=== PATIENT | female | born 1990 | race Caucasian/White ===

== ENCOUNTER 2021-12-13 08:56 | Outpatient (CLI) | payer OTHER, SELFPAY ==
[2021-12-13 15:34] LABS: Cholesterol* 177 mg/dL (90-199)
[2021-12-13 15:35] LABS: Glucose* 91 mg/dL (60-115); HDL Cholesterol* 50 mg/dL (>=50); LDL Cholesterol Calculated 108 mg/dL (<100); Triglycerides* 96 mg/dL (40-149)
== END 2021-12-13 08:57 | disposition home or self-care (01) ==
PROVIDERS: Visit Provider Physician Assistant
DX: Z01.419 Encounter for gynecological examination (general) (routine) without abnormal findings (principal); Z13.6 Encounter for screening for cardiovascular disorders; Z13.1 Encounter for screening for diabetes mellitus
CPT/HCPCS: 80061; 82947

== ENCOUNTER 2021-12-26 20:01 | Emergency (ER) | payer OTHER, SELFPAY ==
[2021-12-26 20:09] VITALS: BP 113/79; PULSE 119; RESP 18; TEMP 36.7; O2SAT 99; BMI 25.0
[2021-12-26 21:00] VITALS: BP 97/64; PULSE 98; RESP 16; O2SAT 96
--- NOTE | 2021-12-26 21:15 | ED_ITS ---
HPI - Chest Pain General Chief Complaint: Chest Pain Stated Complaint: Post Vaccine Chest Pain Time Seen by Provider: 12/26/21 20:09 History of Present Illness HPI narrative: 31-year-old woman accompanied here with her with complaint of evening episodes of sternal chest pain. She felt her heart beating really hard for about a minute and then it would stop; repeated maybe dozen times. Has never had this before. She is normally quite active. Actually just ran the [employer]. Regularly running or doing palatine other than this past week. Does not have any particular pain or exercise intolerance with these workouts. Has not had any fever. But has been clammy and achy with a headache on the heels of COVID booster which she received yesterday. This was not an atypical reaction for her. Heart rate was elevated with prior booster as well. Is not short of breath. No pleuritic pain. No history of dyspepsia. No unusual leg pain. Notes her sister had some rhythm issue but otherwise no family history of cardiovascular problems. Just noting a chest pain thought she should be checked out to be safe. Pain free now. By the time I am seeing Ms. Kenny, there is an EKG that has a lot of baseline irritability and some wandering normal sinus rate of 96. I do not see ischemic changes. I requested for repeat EKG and this shows less baseline irritability rate of 95 normal sinus also without ischemic changes. a little early transition Related Data Home Medications Medication Instructions Recorded Confirmed No Known Home Medications 12/26/21 12/26/21 Allergies Allergy/AdvReac Type Severity Reaction Status Date / Time ethinyl estradiol Allergy Severe swelling, Verified 12/13/21 08:38 hives nickel Allergy Severe swelling, Verified 12/13/21 08:38 hives Apples Allergy Severe throat Uncoded 12/13/21 08:38 swelling Cat hair extract Allergy Severe throat Uncoded 12/13/21 08:38 swelling Horse Allergy Allergy Severe throat Uncoded 12/13/21 08:38 swelling seasonal Allergy Mild congestion, Uncoded 12/13/21 08:38 runny nose Review of Systems Status of ROS Reports: 10 or more systems reviewed and unremarkable except as noted in History and below [facility] Medical History (Updated 12/26/21 @ 21:48 by Dustin Ambrosio MD) Asthma Depression Surgical History (Updated 12/13/21 @ 08:51 by Ana Cruz PA-C) No history of previous surgery Family History (Updated 12/13/21 @ 13:02 by Ana Cruz PA-C) Family/Other Liver cancer Social History (Updated 12/13/21 @ 13:03 by Ana Cruz PA-C) 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 Nonsmoker. Occasional alcohol use. No drug use. No concerns with safety or abuse. Smoking Status: Never smoker How often do you have a drink containing alcohol: monthly or less AUDIT-C Alcohol total score: 1 Non-prescribed substance use: denies use Little interest or pleasure in doing things: not at all Feeling down, depressed, or hopeless: not at all Exam Narrative Exam Narrative: Very pleasant. Calm. Breathing easily. Skin is little clammy most noticeable on her back. Face is a little flushed. S clera little injected. Lungs are clear with equal expansion excursion. Breath sounds throughout. Moving all extremities without difficulty. Well perfused peripherally. No edema apparent. Cardiovascular with elevated rate in a regular rhythm. No murmur rub or gallop identified. Const Vital Signs, click to edit/add: Vital Signs - 24 hr 12/26/21 20:09 12/26/21 21:00 Temperature 98.0 F Pulse Rate [Right Pulse Oximeter] 119 H 98 Respiratory Rate 18 16 Blood Pressure [Right Upper Arm] 113/79 97/64 Pulse Oximetry 99 96 Oxygen Delivery Method Room Air Documenting provider has reviewed patient's vital signs: yes Course Vital Signs Vital signs: Initial Vital Signs Temperature 98.0 F 12/26/21 20:09 Temperature Source Temporal Artery Scan 12/26/21 20:09 Pulse Rate 119 H 12/26/21 20:09 Respiratory Rate 18 12/26/21 20:09 Blood Pressure 113/79 12/26/21 20:09 Blood Pressure Mean 90 12/26/21 20:09 Blood Pressure Position Sitting 12/26/21 20:09 Pulse Oximetry 99 12/26/21 20:09 Oxygen Delivery Method 12/26/21 20:09 Vital Signs Temperature 98.0 F 12/26/21 20:09 Pulse Rate 119 H 12/26/21 20:09 Respiratory Rate 18 12/26/21 20:09 Blood Pressure 113/79 12/26/21 20:09 Pulse Oximetry 99 12/26/21 20:09 Oxygen Delivery Method 12/26/21 20:09 Temperature 98.0 F 12/26/21 20:09 Pulse Rate 98 12/26/21 21:00 Respiratory Rate 16 12/26/21 21:00 Blood Pressure 97/64 12/26/21 21:00 Pulse Oximetry 96 12/26/21 21:00 Oxygen Delivery Method 12/26/21 20:09 MDM - Chest Pain MDM Narrative Medical decision making narrative: Given the transient nature of this discomfort, her historical exercise tolerance, compounding factors of elevated heart rate/tachycardia I think due to COVID booster, no pleuritic nature to this discomfort, I think this is less likely to be pulmonary embolus and even less so ischemic cardiac event. Too early for pulmonary embolus or pericarditis/myositis from vaccine, and again no persistent symptoms. Other than elevated rate, EKGs were already done and unremarkable upon my review. I propose a period of cardiac monitoring in the emergency department looking for some potential tachyarrhythmia. Monitoring is done. Overall stable, good vitals, no recurrence of chest discomfort. Heart rate has decreased into the 80s. I did discuss doing lab work for more reassurance for example D-dimer or troponin but I think this is actually quite low yield here. I think safe to depart the ER. Discharge Plan Discharge Clinical Impression: Heart palpitations, Chest pain Patient Disposition: Home w/ Parent or Adult Condition: Stable Additional Instructions: Focus on hydration. Ibuprofen or acetaminophen --consider taking some when you get home. Depending on how much energy you have, I think you can return to usual level activity. Return for persistent recurrence of this chest discomfort/hard beats, particularly if associated with shortness of breath, persistent lightheadedness, pain when you breathe. Prescriptions: No Action No Known Home Medications Follow Up/Referrals: Provider,Not a Local [Primary Care Provider] - Stand Alone Forms: [employer] Info Instructions
== END 2021-12-26 21:57 | disposition home or self-care (01) ==
PROVIDERS: Emergency Provider Family Medicine
DX: R00.2 Palpitations (principal); R07.89 Other chest pain
CPT/HCPCS: 93005; 99283

== ENCOUNTER 2022-03-01 13:56 | Outpatient (CLI) | payer OTHER, SELFPAY ==
--- NOTE | 2022-03-01 14:00 | CRLHL7_ITS ---
For Patients: As a result of the Cures Act, medical imaging exams and procedure reports are released immediately into your electronic medical record. You may view this report before your referring provider. If you have questions, please contact your health care provider. INDICATION: First trimester scan, establish dates. COMPARISON: None. TECHNIQUE: Real-time chavez-scale imaging of the pelvis was performed. FINDINGS: Sonographic imaging demonstrates a single living intrauterine gestation. The embryo demonstrates a regular cardiac rate measuring 171 beats per minute. The embryo`s crown-rump length measurement of 2.1 cm corresponds to a gestational age of 8 weeks 5 days with a sonographic due date of 10/06/2022. There is a normal-appearing yolk sac. There are no gross abnormalities noted within the embryo at this early state of development. The gestational sac has a normal appearance. There is a small 5 x 4 x 9 millimeter inferior perigestational hemorrhage. Small amount of fluid is present within the adjacent cervical endometrium. The amount of fluid within the sac appears appropriate for gestational age. The cervix is closed. The myometrium appears normal. The ovaries are of normal size. Corpus luteal cyst right ovary. There are no suspicious fluid collections noted in the cul-de-sac. IMPRESSION: Single living intrauterine with sonographic gestational age 8 weeks 5 days and sonographic due date 10/06/2022. Small inferior subchorionic hemorrhage with adjacent mild endocervical fluid. Dictated by Dustin Romeo MD @ 03/01/2022 3:02:00 PM (Electronically Signed)
== END 2022-03-01 13:57 | disposition home or self-care (01) ==
LOC: US 13:57
PROVIDERS: Visit Provider Physician Assistant
DX: Z34.91 Encounter for supervision of normal pregnancy, unspecified, first trimester (principal); Z3A.08 8 weeks gestation of pregnancy
CPT/HCPCS: 76817; 86592; 86703; 86762; 86787; 86803; 86850; 86900; 86901; 87086; 87340; 87491; 87591

== ENCOUNTER 2022-05-13 09:50 | Outpatient (CLI) | payer OTHER, SELFPAY | END 2022-05-13 09:51 | disposition home or self-care (01) | LOC: NFLDREF 05-14 10:27 | PROVIDERS: PCP Physician Assistant; Referring Provider Physician Assistant; Visit Provider Obstetrics & Gynecology | DX: N39.0 Urinary tract infection, site not specified (principal) | CPT/HCPCS: 87086 ==

== ENCOUNTER 2022-05-22 14:02 | Outpatient (CLI) | payer OTHER, SELFPAY ==
--- NOTE | 2022-05-22 14:00 | CRLHL7_ITS ---
For Patients: As a result of the Century Cures Act, medical imaging exams and procedure reports are released immediately into your electronic medical record. You may view this report before your referring provider. If you have questions, please contact your health care provider. INDICATION: Evaluate anatomy. COMPARISON: 03/01/2022 TECHNIQUE: Real time chavez scale imaging of the fetus was performed as well as color Doppler analysis of the umbilical vessels. FINDINGS: Sonographic imaging demonstrates a single living intrauterine gestation. Fetus demonstrates a regular cardiac rate of 150 beats per minute. Fetus has a vertex position. The placenta lies anteriorly without evidence of placenta previa. The edge of the placenta is located 9.7 cm from the internal cervical os. Amniotic fluid volume appears normal. Single deepest vertical pocket: 5.0 cm. The cervix is closed and measures 3.4 cm in length. The composite ultrasound gestational age is calculated at 21 weeks 2 days with an estimated sonographic due date of 09/30/2022. The estimated weight is 382 grams which lies at the 84th %. The following biometric measurements were obtained: Biparietal diameter: 5.2 cm/21 weeks 5 days 96th% Head circumference: 19.2 cm/21 weeks 3 days 90th% Abdominal circumference: 16.4 cm/21 weeks 3 days 85th% Femur length: 3.2 cm/19 weeks 6 days 33rd% The HC/AC ratio measures: 1.17 range (1.06-1.24) On anatomic survey, there is a normal appearance of the cerebral ventricles, cavum septi pellucidi, cisterna magna and cerebellum. The nose, lips, and facial profile appear normal. The cervical, thoracic and lumbar spine are well visualized and appear normal. There is a normal four-chamber heart view and the left and right ventricular outflow tracts appear normal. The diaphragm and stomach appear normal. The kidneys and bladder also appear normal. There is a normal three-vessel cord. Unable to visualize the cord insertion site. The four extremities appear normal. IMPRESSION: Sonographic gestational age 21 weeks 2 days and sonographic due date 09/30/2022. Sonographic age 8 days ahead of the clinical age. No intrinsic abnormalities noted on anatomic survey. The cord insertion into the placenta was not visualized. Dictated by Dustin Romeo MD @ 05/23/2022 11:07:17 AM (Electronically Signed)
== END 2022-05-22 14:03 | disposition home or self-care (01) ==
LOC: US 14:03
PROVIDERS: Visit Provider Obstetrics & Gynecology
DX: Z34.92 Encounter for supervision of normal pregnancy, unspecified, second trimester (principal); Z3A.21 21 weeks gestation of pregnancy
CPT/HCPCS: 76805; 76817

== ENCOUNTER 2022-06-19 14:01 | Outpatient (CLI) | payer OTHER, SELFPAY ==
--- NOTE | 2022-06-19 14:00 | CRLHL7_ITS ---
For Patients: As a result of the Century Cures Act, medical imaging exams and procedure reports are released immediately into your electronic medical record. You may view this report before your referring provider. If you have questions, please contact your health care provider. INDICATION: Unable to visualize placental cord insertion on previous us COMPARISON: 05/22/2022 TECHNIQUE: Real time chavez scale imaging of the fetus was performed. FINDINGS: Sonographic imaging demonstrates a single living intrauterine gestation. Fetus demonstrates a regular cardiac rate of 139 beats per minute. Fetus has a vertex position. The placenta lies anteriorly. Amniotic fluid volume appears upper limits of normal and there is a single deepest vertical pocket: 7.5 cm. ALFA 23.1 cm. cord insertion into the placenta located 4.2 cm from the placental edge. IMPRESSION: cord insert 4.2 cm from the edge of the placenta. Upper limits of normal amniotic fluid with ALFA 23.1 cm. Dictated by Dustin Romeo MD @ 06/20/2022 10:43:26 AM (Electronically Signed)
== END 2022-06-19 14:02 | disposition home or self-care (01) ==
LOC: US 14:02
PROVIDERS: Visit Provider Obstetrics & Gynecology
DX: O43.90 Unspecified placental disorder, unspecified trimester (principal)
CPT/HCPCS: 76816

== ENCOUNTER 2022-07-26 09:11 | Outpatient (CLI) | payer OTHER, SELFPAY ==
--- NOTE | 2022-07-26 09:15 | CRLHL7_ITS ---
For Patients: As a result of the Century Cures Act, medical imaging exams and procedure reports are released immediately into your electronic medical record. You may view this report before your referring provider. If you have questions, please contact your health care provider. INDICATION: Third trimester scan, evaluate growth. COMPARISON: 05/22/2022 TECHNIQUE: Real time chavez scale imaging of the fetus was performed. FINDINGS: Sonographic imaging demonstrates a single living intrauterine gestation. Fetus demonstrates a regular cardiac rate of 145 beats per minute. Fetus has a vertex position. The placenta lies anteriorly. Amniotic fluid volume appears normal and there is a single deepest vertical pocket: 5.9 cm. The estimated weight is 1500gm which lies at the 60th %. On the prior OB ultrasound exam dated 05/22/2022 the estimated weight was at the 84th%. BPD 96th percentile. HC 89th percentile. AC 62nd percentile. FL 25th percentile. The HC/AC ratio measures 1.13 range (0.96-1.17). IMPRESSION: Sonographic gestational age 30 weeks 6 days and sonographic due date 09/28/2022. Sonographic age 10 days of the clinical age. Estimated weight 60th percentile. Abdominal circumference 62nd percentile. Dictated by Dustin Romeo MD @ 07/27/2022 6:13:59 AM (Electronically Signed)
== END 2022-07-26 09:12 | disposition home or self-care (01) ==
LOC: US 09:12
PROVIDERS: PCP Obstetrics & Gynecology; Visit Provider Obstetrics & Gynecology
DX: O36.63X0 Maternal care for excessive fetal growth, third trimester, not applicable or unspecified (principal); Z3A.30 30 weeks gestation of pregnancy
CPT/HCPCS: 76816

== ENCOUNTER 2022-09-11 09:12 | Outpatient (CLI) | payer OTHER, SELFPAY ==
[2022-09-12 10:52] LABS: Strep B DNA Probe NEGATIVE (Negative)
[2022-09-12 11:02] LABS: Strep B Pen/Amox Allergy No
== END 2022-09-11 09:13 | disposition home or self-care (01) ==
PROVIDERS: PCP Obstetrics & Gynecology; Visit Provider Obstetrics & Gynecology
DX: Z34.93 Encounter for supervision of normal pregnancy, unspecified, third trimester (principal); Z3A.36 36 weeks gestation of pregnancy
CPT/HCPCS: 87081; 87653

== ENCOUNTER 2022-09-16 09:34 | Inpatient (IN) | payer OTHER, SELFPAY ==
[2022-09-16] VITALS (87 sets, daily range): BP systolic 97–142; BP diastolic 51–101; PULSE 60–134; RESP 16; TEMP 36.5–37.4; O2SAT 96–100; BMI 29.0
[2022-09-16] MEDS: LACTATED RINGERS 1000 ML 1,000 ML 125 ML IV ×2 (12:20→15:08)
[2022-09-16] MEDS: ROPIVACAINE 0.2% 100 ml 100 ML 12 MG EPIDURAL ×2 (12:33→20:09)
--- NOTE | 2022-09-16 12:41 | P.ANBPRC_ITS ---
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 Nonsmoker. Occasional alcohol use. No drug use. No concerns with safety or abuse. What is your current living situation?: I presently have a place to live Problems where you live: no known problems In the past 12 months, utilities in danger of being shut off: no In the past 12 mos, have been you worried that your food would run out before you had money to buy more?: never true In the past 12 mos, the food you bought just didn't last and you didn't have money to buy more?: never true Smoking Status: Never smoker How often do you have a drink containing alcohol: monthly or less AUDIT-C Alcohol total score: 1 Non-prescribed substance use: denies use How often does anyone, including family, friends and others, physically hurt you : never How often does anyone, including family, friends and others, insult or talk down to you: never How often does anyone, including family, friends and others, threaten you with harm: never How often does anyone, including family, friends and others, scream or curse at you: never Little interest or pleasure in doing things: not at all Feeling down, depressed, or hopeless: not at all Meds Home Medications and Allergies Home Medications Medication Instructions Recorded Confirmed Type L.acid,gasseri,plant,rham-B.animalis-cran cap PO QDAY 03/01/22 09/11/22 History 5 billion cell-250mg capsule (up4 Probiotics Women's) prenat.vits,yina,[id number] 1 tab PO QDAY 03/01/22 09/16/22 History cetirizine 10 mg tablet (Zyrtec) 10 mg PO QDAY PRN 06/19/22 09/16/22 History Allergies Allergy/AdvReac Type Severity Reaction Status Date / Time ethinyl estradiol Allergy Severe swelling, Verified 09/11/22 08:51 hives nickel Allergy Severe swelling, Verified 09/11/22 08:51 hives Apples Allergy Severe throat Uncoded 09/11/22 08:51 swelling Cat hair extract Allergy Severe throat Uncoded 09/11/22 08:51 swelling Horse Allergy Allergy Severe throat Uncoded 09/11/22 08:51 swelling seasonal Allergy Mild congestion, Uncoded 09/11/22 08:51 runny nose Results Vital Signs Vital Signs: Last Vital Signs Temp 99.1 F 09/16/22 08:54 Pulse 85 09/16/22 12:40 Resp 16 09/16/22 08:54 BP 128/61 09/16/22 12:40 Pulse Ox 98 09/16/22 12:36 Weight: 84.232 kg Height: 170.18 cm Anesthesia Procedures Epidural Insertion Patient Location: OB Start Time: 11:45 Stop Time: 12:45 Start Date: 09/16/22 Stop Date: 09/16/22 Reason for Block: procedure for pain Patient Position: sitting Performed By: Radha Cortes Preanesthetic Checklist: IV checked, risks and benefits discussed, monitors and equipment checked, timeout performed and anesthesia consent Prep: chlorhexidine gluconate Monitoring: blood pressure monitoring, continuous pulse oximetry and heart rate Approach: midline Vertebral Space: lumbar (1-5) Epidural Technique: EDGAR saline Needle Type: Tuohy needle Injection Technique: continuous catheter Needle gauge: 17 Needle Length (cm): 10 cm Needle Insertion Depth (cm): 6 Catheter Gauge: 19 Catheter Type: multi-orifice Catheter at skin depth (cm): 12 Test Dose Result: negative and lidocaine 1.5% with epinephrine 1 to 200,000
--- NOTE | 2022-09-16 14:17 | P.ANBPRC_ITS ---
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 Nonsmoker. Occasional alcohol use. No drug use. No concerns with safety or abuse. What is your current living situation?: I presently have a place to live Problems where you live: no known problems In the past 12 months, utilities in danger of being shut off: no In the past 12 mos, have been you worried that your food would run out before you had money to buy more?: never true In the past 12 mos, the food you bought just didn't last and you didn't have money to buy more?: never true Smoking Status: Never smoker How often do you have a drink containing alcohol: monthly or less AUDIT-C Alcohol total score: 1 Non-prescribed substance use: denies use How often does anyone, including family, friends and others, physically hurt you : never How often does anyone, including family, friends and others, insult or talk down to you: never How often does anyone, including family, friends and others, threaten you with harm: never How often does anyone, including family, friends and others, scream or curse at you: never Little interest or pleasure in doing things: not at all Feeling down, depressed, or hopeless: not at all Meds Home Medications and Allergies Home Medications Medication Instructions Recorded Confirmed Type L.acid,gasseri,plant,rham-B.animalis-cran cap PO QDAY 03/01/22 09/11/22 History 5 billion cell-250mg capsule (up4 Probiotics Women's) prenat.vits,yina,zqj-hrqe-jyeji 1 tab PO QDAY 03/01/22 09/16/22 History cetirizine 10 mg tablet (Zyrtec) 10 mg PO QDAY PRN 06/19/22 09/16/22 History Allergies Allergy/AdvReac Type Severity Reaction Status Date / Time ethinyl estradiol Allergy Severe swelling, Verified 09/11/22 08:51 hives nickel Allergy Severe swelling, Verified 09/11/22 08:51 hives Apples Allergy Severe throat Uncoded 09/11/22 08:51 swelling Cat hair extract Allergy Severe throat Uncoded 09/11/22 08:51 swelling Horse Allergy Allergy Severe throat Uncoded 09/11/22 08:51 swelling seasonal Allergy Mild congestion, Uncoded 09/11/22 08:51 runny nose Results Vital Signs Vital Signs: Last Vital Signs Temp 99.1 F 09/16/22 08:54 Pulse 112 H 09/16/22 14:17 Resp 16 09/16/22 08:54 BP 110/62 09/16/22 14:17 Pulse Ox 99 09/16/22 14:04 Weight: 84.232 kg Height: 170.18 cm Anesthesia Procedures Epidural Insertion Patient Location: OB Start Time: 13:40 Stop Time: 14:18 Start Date: 09/16/22 Stop Date: 09/16/22 Reason for Block: procedure for pain Patient Position: sitting Performed By: Gerald Gutierrez Preanesthetic Checklist: IV checked, risks and benefits discussed, surgical consent, monitors and equipment checked, pre-op evaluation, timeout performed and anesthesia consent Prep: chlorhexidine gluconate Monitoring: blood pressure monitoring, continuous pulse oximetry and heart rate Approach: midline Vertebral Space: lumbar (1-5) Needle Type: Tuohy needle Injection Technique: continuous catheter Needle gauge: 17 Needle Length (cm): 10 cm Needle Insertion Depth (cm): 7 Catheter Gauge: 19 Catheter Type: multi-orifice Catheter at skin depth (cm): 13 Test Dose Result: negative and lidocaine 1.5% with epinephrine 1 to 200,000
[2022-09-16] MEDS: LIDOCAINE 2% (PF) 5 ML VIAL EPIDURAL (15:08)
[2022-09-16] MEDS: ROPIVACAINE 0.2 % PF 10 ML INJ 20 MG EPIDURAL (15:09)
[2022-09-16] MEDS: OXYTOCIN 30 unit/500 ML in NS 30 UNIT/500 ML BAG 300 UNIT IVPB (20:36)
--- NOTE | 2022-09-16 21:13 | W.PM.VAGDEL1 ---
Procedure Procedure Done: Global Narrative: Zabrina is a 31 year-old admitted on 09/16/2022 at 36 and 6/7 weeks gestation for spontaneous rupture of membranes. Cervical exam on admission was 4 cm/90 % effaced/0 station with membranes ruptured in vertex presentation. Contractions were every 7-8 minutes. On presentation, heart rate demonstrated baseline 130 bpm with moderate variability, + accelerations, - decelerations; a category I tracing. GBS negative. SROM occurred at 0500 on 09/16/2022 with cleared fluid. Labor Analgesia: Epidural Pitocin: Yes, during second stage due to only q7-10 minutes contractions. Labor onset: 09/16/2022 at 0800 Complete: 09/16/2022 at 1836 Pushin09/16/2022 at 1901 heart tones during second stage were category II with deep later and variables with pushing the last 20 minutes of second stage. Patient was able to push fetus to almost but loses strength at the end of pushes. Maternal exhaustion noted. Due to maternal exhaustion, in addition to increasingly deep variables, patient and partner was counseled on vacuum assisted delivery. Risks, benefits, and alternative were discussed and verbal consent given to proceed with operative vaginal delivery. Prior to vacuum placement, head was confirmed to be in OA presentation and at +3 station. The vacuum was placed 2 fingers breath anterior to the posterior fontanelle along the sagittal suture. Care was taken to ensure that no vaginal tissue was entrapped in the vacuum. Once placement was satisfactorily confirmed, the vacuum was inflated to appropriate pressure and gentle downward traction was applied with maternal pushing at the next contraction. Only one pull was needed to delivery head atraumatically. At 20 30 a viable male delivered in vertex away presentation over perineum via vacuum assisted vaginal delivery. Infant was placed on maternal abdomen. Cord was clamped and cut after a 30-60 second delay. Nose and mouth were bulb suctioned. Baby was handed to the pediatric team for evaluation due to being . weight: Pending. 7 at 1 minute, 6 at 5 minutes, 8 at 10 minutes. Shoulder dystocia: No. Nuchal cord: No. Placenta delivered spontaneously and complete at 2031 with a 3 vessel cord. Complications: None. Indication for operative delivery: Nonreassuring heart tracing during second stage of labor and maternal exhaustion requiring expedited delivery. Mother and infant were stable after delivery. Laceration(s): Second-degree perineal and bilateral labial, repaired with 2-0 Vicryl. Estimated blood loss: 250 mL. Sponge and needles counts are correct. Mother and infant were stable at the time of this note. Zabrina is planning on breast feeding.
[2022-09-17 03:00] VITALS: BP 105/67; PULSE 67; RESP 18; TEMP 36.8; O2SAT 96
[2022-09-17 07:04] LABS: Hemoglobin* 11.6 gm/dL (12.0-16.0)
--- NOTE | 2022-09-17 07:57 | P.OBPN_ITS ---
OB - PN:Subj Subjective Date Seen: 09/17/22 Patient comments OB post-: no complaints, tolerating diet and flatus present [place] status: and doing well [place] feeding status: exclusively Narrative: Day 1:? Vaginal Delivery at 36 and 6/7 weeks.? ?? Complications:? none? The patient feels well.? The pain is well controlled with current medications.? She has no new complaints.? Urinary output is adequate and she is voiding without difficulty.? Has a good appetite, is tolerating a general diet, is passing flatus, and has not had a bowel movement.? Has small amount of rubra lochia.? She is ambulating well.? OB - PN: Obj Exam Physical Exam: Vital signs: Temp Pulse Resp BP Pulse Ox O2 Del Method 98.2 F 67 18 105/67 96 Room Air 09/17/22 03:00 09/17/22 03:00 09/17/22 03:00 09/17/22 03:00 09/17/22 03:00 09/17/22 03:00 Narrative: GENERAL APPEARANCE:? normal affect, alert, no distress? MOOD:? appropriate? CHEST:? clear to auscultation and percussion? HEART:? regular rate and rhythm? ABDOMEN:? soft, non-tender the uterine fundus is U/2 and is appropriate for the stage of recovery.? PERINEUM:? mild edema of the perineum, there is a 2nd degree laceration that is healing well.? EXTREMITIES:? normal and no edema? OB - PN: Obj Data Labs Labs: Laboratory Results - last 24 hr 09/17/22 06:30 Hgb 11.6 L OB - PN: A/P Delivery Assessment and Plan (1) care following vaginal delivery: Status: Acute (2) Lactating mother: Status: Acute Plan day: 1 Plan: routine care Comments: Anticipate discharge tomorrow.
[2022-09-17 08:01] VITALS: BP 109/70; PULSE 63; RESP 16; TEMP 37.1; O2SAT 95
[2022-09-17] MEDS: DOCUSATE SODIUM 100 MG CAPSULE PO (08:09)
[2022-09-17] MEDS: IBUPROFEN 600 MG TABLET PO (10:57)
[2022-09-17 12:05] VITALS: BP 99/62; PULSE 79; RESP 16; TEMP 36.8; O2SAT 96
[2022-09-17 16:31] VITALS: BP 111/71; PULSE 67; RESP 16; TEMP 37; O2SAT 97
[2022-09-17] MEDS: ACETAMINOPHEN 500 MG TABLET 1000 MG PO (17:13)
[2022-09-17 20:15] VITALS: BP 114/76; PULSE 65; RESP 16; TEMP 36.9; O2SAT 96
[2022-09-18] VITALS: BP 107/66; PULSE 76; RESP 16; TEMP 36.6; O2SAT 97
[2022-09-18] MEDS: IBUPROFEN 600 MG TABLET PO (03:46)
[2022-09-18 08:15] VITALS: BP 120/78; PULSE 69; RESP 16; TEMP 37.1; O2SAT 98
--- NOTE | 2022-09-18 08:30 | P.DS_ITS ---
DS: Providers Provider Date Seen: 09/18/22 Date of admission: 09/16/22 09:34 Primary care physician: Alissa Epstein MD Admitting Clinician: Gwendolyn Dewey MD Attending Physician on discharge: Gwendolyn Dewey MD DS: Diagnosis Discharge Diagnosis (1) Lactating mother: Status: Acute (2) care and examination immediately after delivery: Status: Acute Exam Narrative: Exam Narrative: GENERAL APPEARANCE:? normal affect, alert, no distress MOOD:? appropriate CHEST:? clear to auscultation HEART:? regular rate and rhythm ABDOMEN:? soft, non-tender the uterine fundus is At Umbilicus, Midline and is appropriate for the stage of recovery. PERINEUM:? mild edema of the perineum, there is a Perineal Laceration,?2nd degree, that is healing well. EXTREMITIES:? normal and no edema Const: Vital Signs, click to edit/add: Vital Signs - 24 hr 09/17/22 12:05 09/17/22 16:31 09/17/22 20:15 Temperature 98.2 F 98.6 F 98.4 F Pulse Rate [Pulse Oximeter] 79 67 65 Respiratory Rate 16 16 16 Blood Pressure [Ri ght Arm] 99/62 111/71 114/76 Pulse Oximetry 96 97 96 Oxygen Delivery Me thod Room Air Room Air Room Air 09/18/22 00:00 09/18/22 08:15 Temperature 97.8 F 98.7 F Pulse Rate [Pulse Oximeter] 76 69 Respiratory Rate 16 16 Blood Pressure [Ri ght Arm] 107/66 120/78 Pulse Oximetry 97 98 Oxygen Delivery Me thod Room Air Room Air OB - DS: Summary Hospital Course Hospital Course: Zabrina is a 32 y.o. G 1 P 1 who was admitted to [facility] & [facility] for PROM. ?She had an NVD that was complicated by vacuum delivery. The patient feels well. ?The pain is well controlled with current medications. ?She has no new complaints. ?She is breast feeding and reports things are going [well]. the patient has done well.? Vitals have been stable.? She has remained afebrile.? Has a good appetite, is tolerating a general diet. ?She is voiding without difficulty.? She is passing gas and has [not] had a bowel movement.? She is ambulating and denies any dizziness.? Has Small amount of rubra lochia. Problems: none plan: Discharge home with baby. Follow up in 2 weeks and 6 weeks. , may see if needed Hgb 11.6. Peripartum Data delivery method: Vaginal Laceration description: Perineal - 2nd Degree complications: none Infant Gender: Male Infant Discharge Plan: Home Status at Discharge Functional status at discharge: independent ambulation Overall status at discharge: patient is progressing back to baseline Time Spent with Patient Time attestation: Total time spent providing and/or coordinating discharge services: Discharge Plan Discharge Disposition: Home, Self-Care Date of Admission: 09/16/22 09:34 Primary Care Provider: Alissa Epstein Condition: Stable Anticipated Discharge Date/Time: 09/18/22 12:00 Discharge Medications: New docusate sodium 100 mg Capsule 100 mg PO DAILY Qty: 90 0RF ibuprofen 600 mg Tablet 600 mg PO Q6H PRNQty: 60 0RF acetaminophen 500 mg Tablet 1,000 mg PO Q6H PRNQty: 0 0RF Continued prenat.vits,yina,wek-smvm-pwdvj Tablet 1 tab PO QDAY up4 Probiotics Women's 5 billion cell- 250 mg capsule 1 cap PO QDAY cetirizine [Zyrtec] 10 mg tablet 10 mg PO QDAY PRN Discharge Orders: Discharge Order (Routine); Ordered 09/18/22 Ordered By: Brianna Lopez Patient Education: OB Over the Counter Medication Information, OB Vaginal/Breast Feeding Additional Instructions: Discharge instructions were reviewed with the patient including signs and symptoms of infection and home going medications Nothing vaginally for 6 weeks: no tampons or intercourse Do not drive while taking narcotic pain medication(s) Off Work or School for 6 weeks 2-week visit: discuss infant feeding concerns, review control options and screen for anxiety/depression. 6-week visit for an annual exam. consultation services are available to all mothers and babies for the first year after delivery.? To make an appointment, please call [phone]. Activity Level: Activity as Tolerated Discharge Diet: Regular Follow Up Appointments: [facility] [Provider Group] Forms: [employer] Info Instructions
--- NOTE | 2022-09-23 11:47 | P.LDBA_ITS ---
Subjective History of Present Illness Time Seen by Provider: 16:00 Date Seen: 09/16/22 Narrative: Patient is being admitted to Labor and Delivery for active labor on 09/16/2022. She SROM at around 5 am and is dilated to 4-5 cm. She is a 32 year old at 36.6 weeks gestation. Patient denies vaginal bleeding or abnormal vaginal discharge. She also denies MCCOLLUM, n/v, RUQ pain, or visual abnormalities Endorses normal movement. Overall, she's had an uncomplicated course. Obstetrical issues 1. Spotting in early * Subchorionic hemorrhage noted on 1st trimester ultrasound, 5 x 4 x 9 mm. Small amount of fluid in the adjacent cervical endometrium * 2/8 Brown discharge continues, declines follow up US, BV/yeast swab, or speculum exam2. History of asthma, currently on no medication 3. Covid positive 06/04/22. Does not effect future appt. 4. ALFA upper limits of normal with ALFA 23.1 cm on 06/19/22. * SDP 5.9 on 07/26/22 OB - Problem Based A/P Additional Plan (1) Active labor: Status: Acute Plan - Patient in active labor - Expectant management for now - Augmentation PRN - Pain control: requesting epidural Delivery/Labor/Induction Plan Plan: expectant management OB Exam Physical Exam Narrative: Physical exam: VSS General: In labor pain Psych: Alert and oriented x3, full affect HEENT: Normocephalic, atraumatic Heart: Regular rate and rhythm, no murmur rub or gallop Lungs: Clear to auscultation bilaterally Abdomen: Gravid. Palpable contractions. Soft, nontender in between contractions. Lower extremities: No edema or erythema Pelvic exam: /
== END 2022-09-18 12:45 | disposition home or self-care (01) | DRG 807 ==
LOC: OB OUT 09:35 → OB 09:35
PROVIDERS: Admitting Provider Obstetrics & Gynecology; PCP Obstetrics & Gynecology; Visit Provider Obstetrics & Gynecology
DX: O42.013 Preterm premature rupture of membranes, onset of labor within 24 hours of rupture, third trimester (principal); Z37.0 Single live birth; O75.81 Maternal exhaustion complicating labor and delivery; O76 Abnormality in fetal heart rate and rhythm complicating labor and delivery; O70.1 Second degree perineal laceration during delivery; Z3A.36 36 weeks gestation of pregnancy
CPT/HCPCS: 01967; 36415; 84112; 85018; A9270; J2371; J2795; J7120; S0020

== ENCOUNTER 2023-07-29 14:57 | Outpatient (CLI) | payer OTHER, SELFPAY ==
[2023-07-29 23:37] LABS: Chlamydia DNA Amplified* NOT DETECTED (No Detected); GC DNA Amplified* NOT DETECTED (No Detected)
== END 2023-07-29 14:58 | disposition home or self-care (01) ==
PROVIDERS: Visit Provider Physician Assistant
DX: Z34.91 Encounter for supervision of normal pregnancy, unspecified, first trimester (principal); Z3A.08 8 weeks gestation of pregnancy
CPT/HCPCS: 76817; 86592; 86703; 86704; 86706; 86762; 86787; 86803; 86850; 86900; 86901; 87086; 87340; 87491; 87591

== ENCOUNTER 2023-10-22 12:53 | Outpatient (CLI) | payer OTHER, SELFPAY ==
--- NOTE | 2023-10-22 13:00 | CRLHL7_ITS ---
For Patients: As a result of the Century Cures Act, medical imaging exams and procedure reports are released immediately into your electronic medical record. You may view this report before your referring provider. If you have questions, please contact your health care provider. INDICATION: Evaluate anatomy. COMPARISON: 07/29/2023 TECHNIQUE: Real time chavez scale imaging of the fetus was performed as well as color Doppler analysis of the umbilical vessels. FINDINGS: Sonographic imaging demonstrates a single living intrauterine gestation. Fetus demonstrates a regular cardiac rate of 147 beats per minute. Fetus has a variable position. The placenta lies anteriorly without evidence of placenta previa. Edge of the placenta located 5 cm from the internal cervical os. Amniotic fluid volume appears normal. Single deepest vertical pocket: 3.5 cm. The cervix is closed and measures 3.6 cm in length. The composite ultrasound gestational age is calculated at 20 weeks 5 days with an estimated sonographic due date of 03/05/2024. The estimated weight is 358 grams which lies at the 67th %. The following biometric measurements were obtained: Biparietal diameter: 5.0 cm/21 weeks 1 day 86th% Head circumference: 18.6 cm/21 weeks 0 days 77th% Abdominal circumference: 15.3 cm/20 weeks 4 days 57th% Femur length: 3.3 cm/20 weeks 2 days 49th% The HC/AC ratio measures: 1.21 range (1.06-1.25) On anatomic survey, there is a normal appearance of the cerebral ventricles, cavum septi pellucidi, cisterna magna and cerebellum. The nose, lips, and facial profile appear normal. The cervical, thoracic and lumbar spine are well visualized and appear normal. There is a normal four-chamber heart view and the left and right ventricular outflow tracts appear normal. The diaphragm and stomach appear normal. The kidneys and bladder also appear normal. There is a normal three-vessel cord and cord insertion site. The four extremities appear normal. IMPRESSION: Normal OB ultrasound exam with concordance of clinical and sonographic dating. No intrinsic abnormalities noted on anatomic survey. Dictated by Dustin Romeo MD @ 10/22/2023 3:55:52 PM (Electronically Signed)
== END 2023-10-22 12:54 | disposition home or self-care (01) ==
LOC: US 12:53
PROVIDERS: Visit Provider Obstetrics & Gynecology
DX: Z34.92 Encounter for supervision of normal pregnancy, unspecified, second trimester (principal); Z3A.20 20 weeks gestation of pregnancy
CPT/HCPCS: 76805

== ENCOUNTER 2023-12-17 09:02 | Outpatient (CLI) | payer OTHER, SELFPAY | END 2023-12-17 09:03 | disposition home or self-care (01) | LOC: NFLDREF 12-20 16:33 | PROVIDERS: Visit Provider Obstetrics & Gynecology | DX: Z34.93 Encounter for supervision of normal pregnancy, unspecified, third trimester (principal); Z3A.28 28 weeks gestation of pregnancy | CPT/HCPCS: 86592 ==

== ENCOUNTER 2024-01-07 11:15 | Outpatient (RCR) | payer OTHER, SELFPAY | END 2024-05-06 23:59 | disposition home or self-care (01) | PROVIDERS: Visit Provider Obstetrics & Gynecology | DX: M53.3 Sacrococcygeal disorders, not elsewhere classified (principal); M79.18 Myalgia, other site; R20.2 Paresthesia of skin; Z51.89 Encounter for other specified aftercare | CPT/HCPCS: 97140; 97161 ==

== ENCOUNTER 2024-02-12 11:14 | Outpatient (CLI) | payer OTHER, SELFPAY ==
[2024-02-13 11:05] LABS: Strep B DNA Probe Negative (Negative)
[2024-02-13 11:10] LABS: Strep B Susceptibility Needed? No
== END 2024-02-12 11:15 | disposition home or self-care (01) ==
LOC: NFLDREF 11:14
PROVIDERS: Visit Provider Obstetrics & Gynecology
DX: Z34.83 Encounter for supervision of other normal pregnancy, third trimester (principal)
CPT/HCPCS: 87081; 87653

== ENCOUNTER 2024-02-22 19:26 | Outpatient (CLI) | payer OTHER, SELFPAY ==
[2024-02-22 19:36] VITALS: PULSE 154; O2SAT 82
[2024-02-22 19:37] VITALS: BP 117/71; PULSE 90; PULSE 91; O2SAT 95
[2024-02-22 20:12] LABS: Amnisure Rom* Negative
--- NOTE | 2024-02-22 22:46 | PC.OBNST ---
NST Note NST Note Start: 02/22/24 19:32 Freq: ONCE Status: Active Protocol: Document 02/22/24 22:44 PRIYANKA (Rec: 02/22/24 22:45 PRIYANKA Desktop) NST Note 2 Para (# of births) 1 EDC 03/09/24 Gestational Age In Weeks & Days 37 Weeks & 5 Days Patient Presented with Complaint(s) of Contractions/cramping,Vaginal bleeding Reactive Yes Appropriate for Gestational Age Yes DANA Dawkins, RN Date 02/22/24 Reactive Yes Appropriate for Gestational Age Yes DANA Lorenz RN Date 02/22/24 OB NST charge Yes Complete NST Note via Write Note Yes The provider's electronic signature indicates the NST is reactive/appropriate for gestational age. *Note to provider: If an addendum is required, open the patient's chart and click on the note under the Nurse/Allied Health tab.
== END 2024-02-22 22:45 | disposition home or self-care (01) ==
LOC: OB OUT 19:26 → OB 19:27
PROVIDERS: Visit Provider Obstetrics & Gynecology
DX: O47.1 False labor at or after 37 completed weeks of gestation (principal); Z3A.37 37 weeks gestation of pregnancy
CPT/HCPCS: 59025; 84112; G0463

== ENCOUNTER 2024-02-27 07:35 | Inpatient (IN) | payer OTHER, SELFPAY ==
[2024-02-27] VITALS (38 sets, daily range): BP systolic 89–135; BP diastolic 50–76; PULSE 46–202; RESP 14–20; TEMP 36.4–36.9; O2SAT 80–98; BMI 23.3
[2024-02-27] MEDS: LACTATED RINGERS 1000 ML 1,000 ML 125 ML IV ×2 (07:41→08:52)
[2024-02-27 07:51] LABS: Basophils Percent Auto 0.2 % (0.0-3.0); Eosinophils Percent Auto 0.1 % (0.0-7.0); Hematocrit 38.4 % (33.0-51.0); Hemoglobin* 12.8 gm/dL (12.0-16.0); Immature Granulocytes Pct Auto 0.8 %; Lymphocytes Percent Auto 16.5 % (20-44); Mean Corpuscular HGB Conc 33 gm/dL (32-36); Mean Corpuscular Hemoglobin 29 pg (26-34); Mean Corpuscular Volume 87 fL (80-100); Monocytes Percent Auto 4.9 % (0.0-11.0); Neutrophils Percent Auto 77.5 % (42.0-72.0); Platelet Count* 279 K/uL (140-440); RDW Coefficient of Variation % 12.5 % (11.5-15.5); Red Blood Count 4.42 m/uL (4.00-5.20); White Blood Count* 12.34 K/uL (4.50-11.00)
[2024-02-27 08:04] LABS: Slide Review Reflex No
--- NOTE | 2024-02-27 08:09 | P.OBHP_ITS ---
OB - H&P: HPI Labor/Induction History of Present Illness Time Seen by Provider: 09:19 Date Seen: 02/27/24 Chief Complaint: Labor Chief complaint: Maternity Narrative: The patient is a 33 year old 2 para 1 at 38w3d GA by LMP who presents with spontaneous onset of labor. is complicated by history of delivery, vacuum assisted vaginal delivery and asthma. Her complete history and physical exam was documented by Dr. Epstein on 02/12/2024. Patient noted onset of regular/painful uterine contractions this morning at 5:30 a.m. by the time she arrived to the hospital, they were occurring every 2 minutes and very painful. Denies vaginal bleeding or leaking of fluid. Endorses movement this morning but notes it is hard to say if this is exactly at baseline due to frequency of contractions. Specific Issues/Plans : Angelo Son: Bruce undecided on name H&P: 02/12/2024 Dr. Epstein - delivery 36 6/7 SROM 36 6/7 -history of vacuum assisted vaginal delivery -asthma; has not been treated since high school -[id number] at 12 weeks: NEGATIVE, IT'S A GIRL Ultrasounds: -bilateral hemorrhagic cysts noted on 1st trimester US, 1.5 cm and 2.7 cm - FAS on 10/21: EFW 358g at 66.5%ile. BPD 86%, HC 77%, AC 57%, FL 48%. MVP 3.5cm. Anterior placenta, no previa. Cervical length 3.6cm. Covid:declines Flu: 02/17/24 Tdap: 12/30 RSV: 01/26 32 mental health: PHQ 3, ZITA 0 Last pap smear: 10/27/20 NIL,-HPV Meds Home Medications and Allergies Home Medications ?Medication ?Instructions ?Recorded ?Confirmed ?Type L.acid,gasseri,plant,rham-B.animalis-cran 1 cap PO QDAY 03/01/22 02/24/24 History 5 billion cell-250mg capsule (up4 Probiotics Women's) prenat.vits,yina,svt-kszq-odexy 1 tab PO QDAY 03/01/22 02/24/24 History cetirizine 10 mg tablet (Zyrtec) 10 mg PO QDAY PRN 06/19/22 02/24/24 History acetaminophen 500 mg tablet 1,000 mg PO Q6H PRN 12/17/23 02/24/24 History (Tylenol Extra Strength) Allergies Allergy/AdvReac Type Severity Reaction Status Date / Time ethinyl estradiol Allergy Severe swelling, Verified 02/24/24 12:07 hives nickel Allergy Severe swelling, Verified 02/24/24 12:07 hives apple Allergy Mild Watery Eye Verified 02/24/24 12:07 cat dander Allergy Mild Watery Eye Verified 02/24/24 12:07 horse dander Allergy Mild Watery Eye Verified 02/24/24 12:07 seasonal Allergy Mild congestion, Uncoded 02/24/24 12:07 runny nose OB - H&P: Exam Physical Exam: Vital signs: Temp Pulse Resp BP Pulse Ox 98.4 F 75 14 115/63 97 02/27/24 07:45 02/27/24 07:45 02/27/24 07:45 02/27/24 07:45 02/27/24 08:04 Narrative: General: Alert and oriented, in no acute distress. Comfortable now with epidural in place. Psych: Appropriate mood and affect Abdomen: Gravid heart rate: Category 1. Baseline 130 beats per minute, moderate variability, accelerations present, decelerations absent. [place]: Nina every 3-5 minutes Cervix: 8/90/0, status post AROM with return of clear fluids OB - Results Labs Labs: Short CBC 02/27/24 Range/Units 07:42 WBC 12.34 H (4.50-11.00) K/uL Hgb 12.8 (12.0-16.0) gm/dL Hct 38.4 (33.0-51.0) % Plt Count 279 (140-440) K/uL OB - Problem Based A/P Additional Plan (1) : Status: Acute (2) Asthma: Status: Acute Plan Zabrina is a 33-year-old at 38 weeks 3 days gestational age by ultrasound who presents for spontaneous onset of labor. is complicated by history of delivery, vacuum assisted vaginal delivery and asthma. Cervix is 8 cm dilated on admission, where patient requested and showing thereafter received epidural. She is now comfortable, my cervical exam was 8/90/0 and AROM was report with return of clear fluid. - Expectant management of labor, now status post AROM - Anticipate next exam in 1-2 hours, sooner as clinically indicated - Blood type A+ - GBS negative
[2024-02-27] MEDS: BUPIVACAINE 0.25% PF 10 ML 10 ML ML EPIDURAL (08:35)
[2024-02-27] MEDS: ROPIVACAINE 0.2% 100 ml 100 ML 12 MG EPIDURAL (08:35)
--- NOTE | 2024-02-27 08:40 | PM.ANBPRC ---
[facility] Medical History Asthma ?J45.909 - Unspecified asthma, uncomplicated (ICD-10) Surgical History No history of previous surgery Family History Family/Other Liver cancer Social History Narrative: Lives in [place] with and son. 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 Marital status: . Druze/cultural needs: no. Chemical or radiation exposure: no. Pre- tobacco use: no. Pre- alcohol use: 2/week. Current tobacco use: no. Current alcohol use: no. Recreational drug use: no. Dietary restrictions: no. Blood transfusion acceptable in an emergency: yes. PSYCHOSOCIAL HISTORY: History of depression or currently depressed: no. Current or past physical, emotional, or sexual mistreatment: no. Problems that will make it hard to make it to appointments: no. What is your current living situation?: I presently have a place to live Problems where you live: no known problems In the past 12 months, utilities in danger of being shut off: no In past 12 months, lack of transportation kept you from medical appts, meetings, work, or getting things needed for daily living: no In the past 12 mos, have been you worried that your food would run out before you had money to buy more?: never true In the past 12 mos, the food you bought just didn't last and you didn't have money to buy more?: never true Smoking Status: Never smoker How often do you have a drink containing alcohol: monthly or less AUDIT-C Alcohol total score: 1 Non-prescribed substance use: denies use How often does anyone, including family, friends and others, physically hurt you: never How often does anyone, including family, friends and others, insult or talk down to you: never How often does anyone, including family, friends and others, threaten you with harm: never How often does anyone, including family, friends and others, scream or curse at you: never Meds Home Medications and Allergies Home Medications ?Medication ?Instructions ?Recorded ?Confirmed ?Type L.acid,gasseri,plant,rham-B.animalis-cran 1 cap PO QDAY 03/01/22 02/24/24 History 5 billion cell-250mg capsule (up4 Probiotics Women's) prenat.vits,yina,yyj-euou-mrhmk 1 tab PO QDAY 03/01/22 02/24/24 History cetirizine 10 mg tablet (Zyrtec) 10 mg PO QDAY PRN 06/19/22 02/24/24 History acetaminophen 500 mg tablet 1,000 mg PO Q6H PRN 12/17/23 02/24/24 History (Tylenol Extra Strength) Allergies Allergy/AdvReac Type Severity Reaction Status Date / Time ethinyl estradiol Allergy Severe swelling, Verified 02/24/24 12:07 hives nickel Allergy Severe swelling, Verified 02/24/24 12:07 hives apple Allergy Mild Watery Eye Verified 02/24/24 12:07 cat dander Allergy Mild Watery Eye Verified 02/24/24 12:07 horse dander Allergy Mild Watery Eye Verified 02/24/24 12:07 seasonal Allergy Mild congestion, Uncoded 02/24/24 12:07 runny nose Results Labs Labs: Laboratory Results - last 24 hr 02/27/24 07:42 WBC 12.34 H RBC 4.42 Hgb 12.8 Hct 38.4 MCV 87 MCH 29 MCHC 33 RDW Coeff of Maggie 12.5 Plt Count 279 Neut % (Auto) 77.5 H Lymph % (Auto) 16.[address] [place] % (Auto) 4.9 Eos % (Auto) 0.1 Baso % (Auto) 0.2 Neut # (Auto) 9.60 H Lymph # (Auto) 2.00 [place] # (Auto) 0.60 Eos # (Auto) 0.00 Baso # (Auto) 0.00 Abs Immat Gran (auto) 0.10 Imm/Tot Granulo (auto) 0.8 Vital Signs Vital Signs: Last Vital Signs Temp 98.4 F 02/27/24 07:45 Pulse 75 02/27/24 08:37 Resp 14 02/27/24 07:45 BP 113/66 02/27/24 08:37 Pulse Ox 98 02/27/24 08:19 Anesthesia Procedures Epidural Insertion Patient Location: OB Start Time: 07:55 Stop Time: 08:35 Start Date: 02/27/24 Stop Date: 02/27/24 Reason for Block: procedure for pain Patient Position: sitting Performed By: Blaise Hawkins Preanesthetic Checklist: IV checked, risks and benefits discussed, monitors and equipment checked, pre-op evaluation, timeout performed and anesthesia consent Prep: chlorhexidine gluconate Monitoring: blood pressure monitoring, continuous pulse oximetry and heart rate Approach: midline Vertebral Space: lumbar (1-5) Epidural Technique: EDGAR saline Needle Type: Tuohy needle Injection Technique: continuous catheter Needle gauge: 17 Needle Length (cm): 10 cm Needle Insertion Depth (cm): 7 Catheter Gauge: 19 Catheter Type: multi-orifice Catheter at skin depth (cm): 13 Test Dose Result: negative and lidocaine 1.5% with epinephrine 1 to 200,000
--- NOTE | 2024-02-27 10:20 | PM.OBPNL ---
Subjective Time Seen by Provider: 10:20 Date Seen: 02/27/24 Narrative: Zabrina is a 33-year-old at 38 weeks 3 days gestational age by ultrasound who presents for spontaneous onset of labor. is complicated by history of delivery, vacuum assisted vaginal delivery and asthma. In for routine exam, to assess for cervical dilation versus placement of a Cerrato catheter status post epidural. She is now 10/100/+2. Plan to start 2nd stage of labor. Began maternal expulsive efforts. Blood type A positive, GBS negative. Objective Vital Signs: Last Vital Signs Temp 98.4 F 02/27/24 07:45 Pulse 64 02/27/24 10:03 Resp 14 02/27/24 07:45 BP 90/55 L 02/27/24 10:03 Pulse Ox 98 02/27/24 08:19
[2024-02-27] MEDS: OXYTOCIN 30 unit/500 ML in NS 30 UNIT/500 ML BAG 300 UNIT IVPB (10:37)
--- NOTE | 2024-02-27 11:19 | W.PM.VAGD1_ITS ---
Procedure Procedure Done: Global Procedure Details: Normal spontaneous vaginal delivery 1st degree perineal laceration repair Intrapartal Events: Labor Augmentation Delivery augmentation: rupture of membranes Delivery monitor: external FHT Route of delivery: Laceration description: Perineal - 1st Degree Delivery repair: Vicryl Estimated blood loss (mL): 125 Anesthesia type: Epidural Disposition: floor Complications: None Narrative: Zabrina is a 33-year-old at 38 weeks 3 days gestational age by ultrasound who presents for spontaneous onset of labor. is complicated by h istory of delivery, vacuum assisted vaginal delivery and asthma. heart tones on admission were category 1. Her labor was spontaneous onset but augmented with AROM and epidural was util ized for pain management. Status of bag of arevalo: AROM performed intrapartum with return of clear fluid. heart tones during active labor were 1 primarily. She was complete at 1017 and started pushing at 1033. She made excellent descent throughout the second stage of labor, and had a normal spontaneous vaginal delivery at 1036. heart tones during second stage of labor were category 1, last minute was difficult to monitor due to . Baby delivered OA, restituted RONNI and the anterior and posterior shoulders delivered without difficulty. Nuchal cord: none. The cord was clamped and cut after delayed cord clamping. Active management of the third stage occurred with IV pitocin and gentle cord traction and the placenta delivered spontaneous and intact at 1043. Cord gases sent: no Cord blood sent for infant ABO: no details: - Liveborn female fetus at 1036 - weight: pending at time of documentation - APGARs were 9 and 9 at 1 and 5 minutes respectively Perineum and vagina were inspected, and the following lacerations were noted: 1st degree along her previous laceration site, hemostatic. Repair was completed in the usual fashion with 3-0 vicryl under existing epidural analgesia to reapproximate tissues. Excellent hemostasis was noted. The following counts were correct: sponges, needles, instruments. Mother and infant in stable condition following the . Gender: Female presentation: vertex Placental Delivery Description: Spontaneous Cord Description: 3 Vessels
[2024-02-27] MEDS: IBUPROFEN 600 MG TABLET PO ×2 (15:25→21:17)
[2024-02-27] MEDS: DOCUSATE SODIUM 100 MG CAPSULE PO (17:42)
[2024-02-27] MEDS: ACETAMINOPHEN 500 MG TABLET 1000 MG PO (19:27)
[2024-02-28 04:01] VITALS: BP 108/62; PULSE 50; RESP 18; O2SAT 98
[2024-02-28] MEDS: IBUPROFEN 600 MG TABLET PO ×2 (04:14→11:20)
[2024-02-28] MEDS: ACETAMINOPHEN 500 MG TABLET 1000 MG PO (08:01)
[2024-02-28] MEDS: DOCUSATE SODIUM 100 MG CAPSULE PO (08:02)
--- NOTE | 2024-02-28 08:26 | PM.ANPOST ---
Post Anesthesia Note Post Anesthesia Note Patient seen: Inpatient Respiratory Status: adequate Cardiovascular Status: adequate Mental Status: baseline Pain: adequate Temp: baseline Anesthetic awareness: N/A Complications: none Follow care: none
[2024-02-28 08:31] VITALS: BP 100/65; PULSE 61; RESP 20; TEMP 36.3; O2SAT 96
--- NOTE | 2024-02-28 10:07 | P.DS_ITS ---
DS: Providers Provider Time Seen by Provider: 09:00 Date Seen: 02/28/24 Date of admission: 02/27/24 07:35 Primary care physician: Not a Local Provider Admitting Clinician: Julia Potts MD Attending Physician on discharge: Julia Potts MD Date of Discharge: 02/28/24 DS: Diagnosis Discharge Diagnosis (1) state: Status: Acute Exam Narrative: Exam Narrative: Physical exam: General: No acute distress Psych: Alert and oriented x4, full affect HEENT: Normocephalic, atraumatic Heart: Regular rate and rhythm, no murmur rub or gallop Lungs: Clear to auscultation bilaterally Abdomen: Soft, no tenderness, rebound, or guarding. Uterus firm 2 cm below um bilicus Skin: No lesions or rashes Breasts: no nodules or masses, no nipple discharge, no axillary adenopathy Lower extremities: No edema or erythema Pelvic exam: Scant lochia Const: Vital Signs, click to edit/add: Vital Signs - 24 hr 02/27/24 10:33 02/27/24 10:48 02/27/24 11:04 Temperature Pulse Rate 78 66 64 Pulse Rate [Pulse Oximeter] Respiratory Rate Blood Pressure 124/72 107/51 L 93/50 L Blood Pressure [Le ft Arm] P[facility]xim[facility] 02/27/24 11:18 02/27/24 11:32 02/27/24 11:48 Temperature Pulse Rate 62 56 L 54 L Pulse Rate [Pulse Oximeter] Respiratory Rate Blood Pressure 105/58 L 108/56 L 108/61 Blood Pressure [Le ft Arm] Pulse Oximetry Oxygen Delivery [facility] 02/27/24 12:03 02/27/24 12:18 02/27/24 12:33 Temperature Pulse Rate 54 L 46 L 48 L Pulse Rate [Pulse Oximeter] Respiratory Rate Blood Pressure 109/62 113/66 115/73 Blood Pressure [Le ft Arm] Pulse Oximetry 80 L [facility] 02/27/24 12:34 02/27/24 12:48 02/27/24 16:02 Temperature 97.5 F L Pulse Rate 46 L Pulse Rate [Pulse Oximeter] 60 Respiratory Rate 18 Blood Pressure 129/61 Blood Pressure [Le ft Arm] 117/76 Pulse Oximetry 98 96 Oxygen Delivery [facility] Room Air 02/27/24 19:19 02/27/24 23:48 02/28/24 04:01 Temperature 98.2 F Pulse Rate Pulse Rate [Pulse Oximeter] 61 68 50 L Respiratory Rate 16 20 18 Blood Pressure Blood Pressure [Le ft Arm] 108/71 110/65 108/62 Pulse Oximetry 97 97 98 Oxygen Delivery Me thod Room Air Room Air Room Air 02/28/24 08:31 Temperature 97.4 F L Pulse Rate Pulse Rate [Pulse Oximeter] 61 Respiratory Rate 20 Blood Pressure Blood Pressure [Le ft Arm] 100/65 Pulse Oximetry 96 Oxygen Delivery Me thod Room Air OB - DS: Summary Hospital Course Hospital Course: The patient is a 33 year old G2 P 1001 at 38.3 weeks gestation that was admitted to the Center on 02/27/24 for spontaneous labor. She had an uncomplicated vaginal delivery. She delivered a viable female infant. She is . the patient has done well. Overnight patient had no complaints. Her pain is well controlled on oral pain medications. She is tolerating a regular diet. She has passed flatus. She is ambulating without difficulty. Lochia is scant. She is urinating without best. Patient denies chest pain, SOB, n/v, headache, RUQ pain, vision changes, dizziness. Peripartum Data Laceration description: Perineal - 1st Degree Infant Gender: Female Time Spent with Patient Time attestation: Total time spent providing and/or coordinating discharge services: Discharge Plan Discharge Disposition: Home, Self-Care Date of Admission: 02/27/24 07:35 Attending Provider on Discharge: Gwendolyn Dewey Primary Care Provider: Provider,Not a Local Condition: Stable Anticipated Discharge Date/Time: 02/28/24 09:28 Discharge Medications: New Dermoplast (with menthol) 20-0.5 % Aerosol 1 spray topical QID PRN90 Days Qty: 78 1RF docusate sodium 100 mg Capsule 100 mg PO DAILY 30 Days Qty: 30 0RF ibuprofen 600 mg Tablet 600 mg PO Q6H PRN30 Days Qty: 90 0RF Lanolin (HPA) 100 % Cream 1 applic topical Q1H PRN30 Days Qty: 21 1RF Continued acetaminophen [Tylenol Extra Strength] 500 mg tablet 1,000 mg PO Q6H PRN cyclobenzaprine 5 mg tablet 5 mg PO TID PRN (Reason: muscle spasm) Qty: 10 0RF prenat.vits,yina,[id number]-raqy-hmfob Tablet 1 tab PO QDAY up4 Probiotics Women's 5 billion cell- 250 mg capsule 1 cap PO QDAY cetirizine [Zyrtec] 10 mg tablet 10 mg PO QDAY PRN Discharge Orders: Discharge Order (Routine); Ordered 02/28/24 Ordered By: Gwendolyn Dewey Patient Education: OB Vaginal/Breast Feeding Follow Up Appointments: Provider,Not a Local [Primary Care Provider] - Forms: emoteShare Info Instructions Discharge Comments: Discharge instructions were reviewed with the patient including signs and symptoms of infection and home going medications. Lifting Restrictions: 20 pounds for [address] while taking narcotic pain medication: Approximately 1 week. Off Work or School for 6 weeks. Nothing vaginally for 6 weeks Symptoms to report to doctor: -Bleeding that saturates more than one pad per hour ?-Passing clots larger than the size of a golf ball ?-Pain not relieved by prescribed medication ?-Fever above 100.4 degrees Fahrenheit ?-A foul vaginal odor ?-Difficulty in emotions, mood and functions ?-Thoughts of hurting yourself and/or ?-Painful, reddened area in your breast ?-Any drainage, redness or tenderness in your IV/epidural site ?-Severe headache that doesn't improve after taking medications ?-Changes in vision, including temporary loss of vision, blurred vision, and/or light sensitivity ?-Upper abdominal pain (usually under ribs on the right side) ?-Decrease in urination or painful, frequent urinating ?-Chest pain ?-Shortness of breath ?-Tenderness or pain with redness and/swelling in the calf(s) of your leg Follow Up with a [facility] provider: ? Optional 2 week visit: Answer concerns for infant care, screen for anxiety/depression. ? 6 week visit: Annual exam. consultation services are available to all mothers and babies for the first year after delivery.? To make an appointment, please call [phone].
[2024-02-28 12:01] VITALS: BP 107/73; PULSE 76; RESP 20; TEMP 36.3; O2SAT 97
[2024-02-29 18:08] LABS: Rapid Plasma Reagin (RPR) Non Reactive (Non Reactive)
== END 2024-02-28 14:15 | disposition home or self-care (01) | DRG 807 ==
LOC: OB OUT 07:35 → OB 07:35
PROVIDERS: Admitting Provider Obstetrics & Gynecology; Visit Provider Obstetrics & Gynecology
DX: O70.0 First degree perineal laceration during delivery (principal); Z37.0 Single live birth; J45.909 Unspecified asthma, uncomplicated; Z3A.38 38 weeks gestation of pregnancy
CPT/HCPCS: 01967; 36415; 85018; 85025; 86592; 93005; G0463; A9270; J0665; J2371; J2795; J7120

== ENCOUNTER 2024-03-10 16:33 | Outpatient (CLI) | payer OTHER, SELFPAY ==
--- NOTE | 2024-03-10 17:30 | CRLHL7_ITS ---
For Patients: As a result of the Century Cures Act, medical imaging exams and procedure reports are released immediately into your electronic medical record. You may view this report before your referring provider. If you have questions, please contact your health care provider. INDICATION: hemorrhage TECHNIQUE: Ultrasound pelvis transabdominal and transvaginal for better assessment or to better visualize the endometrium. Real-time sonographic images with spectral and color Doppler imaging of the ovaries were obtained. COMPARISON: None FINDINGS: Uterus: 14.1 x 6.3 x 9.5 cm. Normal echotexture of the myometrium. No masses. Endometrium: Endometrial thickness measures 11 mm. Heterogeneous with hypoechoic components, likely hematoma as well some small soft tissue components along the anterior aspect of the endometrial cavity showing some blood flow on color Doppler imaging. This area measures grossly up to 6 millimeters. Right ovary: Not seen Left ovary: Not seen Cul-de-sac: No significant free fluid. IMPRESSION: Endometrial thickness of 11 millimeters with some nodularity along the endometrial wall. Much of this is avascular suggesting hematoma however some vascularity is questioned within a roughly 6 millimeter area along the anterior endometrium which may represent a small area of retained products. Dictated by Alexander Garduno MD @ 03/11/2024 8:41:03 AM (Electronically Signed)
== END 2024-03-10 16:34 | disposition home or self-care (01) ==
LOC: US 16:33
PROVIDERS: Visit Provider Registered Nurse
DX: O72.1 Other immediate postpartum hemorrhage (principal); R93.89 Abnormal findings on diagnostic imaging of other specified body structures
CPT/HCPCS: 76830; 76856

== ENCOUNTER 2024-12-13 12:50 | Outpatient (CLI) | payer OTHER, SELFPAY ==
--- NOTE | 2024-12-13 13:00 | CRLHL7_ITS ---
For Patients: As a result of the Century Cures Act, medical imaging exams and procedure reports are released immediately into your electronic medical record. You may view this report before your referring provider. If you have questions, please contact your health care provider. INDICATION: Irregularly heavy menses. Assess IUD position. COMPARISON: 03/10/2024 TECHNIQUE: 2D chavez-scale and color Doppler images were acquired of the pelvis using a transabdominal and transvaginal approach. Transvaginal imaging performed to better visualize the endometrial stripe and ovaries. FINDINGS: Sonographic images demonstrate a normal size and smooth outer contour of the uterus. Uterus measures 9.1 cm in length by 4.3 cm in AP diameter by 6.0 cm in transverse dimension. The myometrium has a normal uniform echotexture. The endometrial lining appears normal and measures 5.2 mm in composite thickness. IUD is present in good position within the endometrial canal. The right ovary measures 2.5 x 1.9 x 1.9 cm in size and the left ovary measures 3.6 x 3.0 x 3.0 cm. The ovaries demonstrate normal arterial and venous blood flow on color Doppler analysis. There are no suspicious fluid collections within the cul-de-sac. Simple cyst left ovary measures 2.6 x 2.4 x 2.4 cm. IMPRESSION: IUD is present in good position within the endometrial canal. Dictated by Dustin Romeo MD @ 12/13/2024 2:41:16 PM (Electronically Signed)
== END 2024-12-13 12:51 | disposition home or self-care (01) ==
LOC: US 12:51
PROVIDERS: PCP Family Medicine; Visit Provider Registered Nurse
DX: N92.6 Irregular menstruation, unspecified (principal)
CPT/HCPCS: 76830; 76856